=== PATIENT | female | born 1940 | race Caucasian/White ===

== ENCOUNTER → 2016-10-11 | Outpatient (CLI) | payer MEDICARE, OTHER | LOC: MC.RAD 10-04 10:40 | DX: Z12.31 Encounter for screening mammogram for malignant neoplasm of breast (principal) ==

== ENCOUNTER 2018-05-25 10:03 | Outpatient (CLI) | payer MEDICARE, OTHER ==
[2018-05-25] VITALS (8 sets, daily range): BP systolic 126–149; BP diastolic 67–93; PULSE 46–74; TEMP 97.4–97.8
[~2018-05-25] VITALS: Ht 157.6 cm; Wt 76.0 kg
[2018-05-25] MEDS ORDERED: FLONASEALLERGY NS (11:24)
[2018-05-25] MEDS ORDERED: PROTONIX20 MG PO (11:25)
[2018-05-25] MEDS ORDERED: ZESTRIL 10MG10 MG PO (11:25)
[2018-05-25] MEDS ORDERED: ZANTAC 150MG T150 MG PO ×2 (11:26)
[2018-05-25] MEDS ORDERED: CENTRUM SILVER1 CTB PO (11:27)
[2018-05-25] MEDS ORDERED: ZYRTEC 10MG10 MG PO (11:27)
[2018-05-25] MEDS ORDERED: ULTRAM 50MG TAB50 MG PO (11:28)
[2018-05-25] MEDS ORDERED: MOTRIN 200200 MG/TAB PO (11:28)
--- NOTE | 2018-05-25 12:20 | NUR ---
ALL SEDATION MEDICATIONS WILL BE GIVEN DURING PROCEDURE WITH VERBAL ORDER FROM MD MOHAN. SEE MERGE FOR ADMIN TIMES. SEE MERGE FOR RASS MODERATE SEDATION ASSESSMENTS DURING AND AFTER PROCEDURE.
--- NOTE | 2018-05-25 13:45 | NUR ---
Pt returned to EU 11 per bed s/p vertebroplasty. Pt resting well, son at bedside.
--- NOTE | 2018-05-25 15:26 | NUR ---
Pt has ambulated, voided and shannen PO intake s N/V.
--- NOTE | 2018-05-25 15:45 | NUR ---
Pt reports pain with ambulation prior to procedure /10. Pt reports pain with ambulation post vertebroplasty /. PIV removed with catheter intact.
--- NOTE | 2018-05-25 15:55 | NUR ---
Pt discharged per w/c by nurse with son.
== END 2018-05-25 16:01 | disposition home or self-care (01) ==
LOC: COL.CAR 10:03
DX: S32.040A Wedge compression fracture of fourth lumbar vertebra, initial encounter for closed fracture (principal); M19.90 Unspecified osteoarthritis, unspecified site; J45.909 Unspecified asthma, uncomplicated; I11.0 Hypertensive heart disease with heart failure; I50.30 Unspecified diastolic (congestive) heart failure; K21.9 Gastro-esophageal reflux disease without esophagitis; Z90.710 Acquired absence of both cervix and uterus; Z88.3 Allergy status to other anti-infective agents; Z82.5 Family history of asthma and other chronic lower respiratory diseases; Z82.3 Family history of stroke; Z83.79 Family history of other diseases of the digestive system; Z82.49 Family history of ischemic heart disease and other diseases of the circulatory system
CPT/HCPCS: J2250; J3010; J7120

== ENCOUNTER 2018-06-19 10:14 | Outpatient (CLI) | payer MEDICARE, OTHER ==
[2018-06-19] VITALS (10 sets, daily range): BP systolic 110–140; BP diastolic 63–88; PULSE 52–83; TEMP 97.8–97.9
[~2018-06-19] VITALS: Ht 157.8 cm; Wt 72.0 kg
[~2018-06-19 10:14] MED LIST: CENTRUM SILVER1 CTB PO; FLONASEALLERGY NS; MOTRIN 200200 MG/TAB PO; PROTONIX20 MG PO; ULTRAM 50MG TAB50 MG PO; ZANTAC 150MG T150 MG PO; ZESTRIL 10MG10 MG PO; ZYRTEC 10MG10 MG PO
--- NOTE | 2018-06-19 11:37 | NUR ---
ALL MEDICATIONS GIVEN WITH VERBAL ORDER AND READBACK WITH MD. SEE MERGE FOR ALL MEDICATION ADMIN TIMES. SEE MERGE FOR RASS ASSESSMENTS DURING PROCEDURE.
--- NOTE | 2018-06-19 12:30 | NUR ---
Pt returned to EU 12 per bed s/p vert. Pt resting well, daughter at bedside.
--- NOTE | 2018-06-19 13:30 | NUR ---
Pt ambulate to BR with assist of 1.
--- NOTE | 2018-06-19 15:20 | NUR ---
Pt has ambulated c cane and SBA, voided and shannen PO intake s n/v. PIV removed with catheter intact.
--- NOTE | 2018-06-19 15:45 | NUR ---
Pt discharged per w/c by nurse with daughter.
== END 2018-06-19 16:22 | disposition home or self-care (01) ==
LOC: COL.CAR 10:14
DX: S32.030A Wedge compression fracture of third lumbar vertebra, initial encounter for closed fracture (principal); Z90.710 Acquired absence of both cervix and uterus; Z88.3 Allergy status to other anti-infective agents
CPT/HCPCS: J2250; J3010; J7120

== ENCOUNTER 2021-07-11 14:04 | Emergency (ER) | payer MEDICARE ==
[~2021-07-11] VITALS: Ht 154.9 cm; Wt 65.9 kg
[2021-07-11 16:44] VITALS: BP 134/75; PULSE 67; TEMP 97.9
== END 2021-07-11 16:45 | disposition home or self-care (01) ==
LOC: COL.ER 14:04
DX: S00.83XA Contusion of other part of head, initial encounter (principal); S00.33XA Contusion of nose, initial encounter; W01.0XXA Fall on same level from slipping, tripping and stumbling without subsequent striking against object, initial encounter; Y92.007 Garden or yard of unspecified non-institutional (private) residence as the place of occurrence of the external cause

== ENCOUNTER → 2021-08-18 | Outpatient (REF) | LOC: COL.CARD 07:44 | DX: R00.2 Palpitations (principal) ==

== ENCOUNTER → 2022-09-02 | Outpatient (REF) | payer MEDICARE ==
[~2022-09-02] MED LIST changes: +CEPHALEXIN250 M1 PO; +CIPRO 500MG TA500 MG PO; +COLACE 100100 MG/CAP PO; +CRANBERRY125 MG; +DIFLUCAN200 MG PO; +ELIQUIS 2.5 PO; +ELIQUIS 5MG PO; +FOSAMAX 70MG TA70 MG PO; +HONEY BEARS MU1 EACH PO; +JARDIANCE10; +LASIX 20MG TABL20 MG PO; +LIPITOR20 MG PO; +MIRALAX PA17 GM/Dose PO; +NEURONTIN100 MG/CAP PO; +PEPCID 20MG TAB20 MG PO; +REMERON 15M15 MG/TA1 PO; +SENNA-S 50 MG-81 TAB PO; +VITAMIN C500 MG PO
[2022-09-02 12:04] LABS: BILIRUBIN,TOTAL 0.6 mg/dL (0.2-1.2); CALCIUM 9.1 mg/dL (8.4-10.2); CREATININE, serum 0.74 mg/dL (0.57-1.11); THYROID STIMULATING HORMONE 2.504 uIU/mL (0.350-4.940); TOTAL PROTEIN 5.2 gm/dL (6.2-8.1)
[2022-09-02 12:13] LABS: BASO % 0.5 % (0.0-2.0); EOS # 0.1 K/mm3 (0.0-0.7); EOS % 2.1 % (0.0-4.0); GRAN # 3.4 K/mm3 (1.4-6.5); GRAN % 59.7 % (42.2-75.2); HEMOGLOBIN 11.7 g/dl (12.5-16.0); LYMPH # 1.5 K/mm3 (1.2-3.4); LYMPH % 25.7 % (20.0-51.0); MEAN CELL VOLUME 87 fl (80.0-100.0); MEAN CORPUSCULAR HEMOGLOBIN 28 pg (27-31); MEAN CORPUSCULAR HGB CONC 32 g/dl (33.0-37.0); MEAN PLATELET VOLUME 9.8 fl (7.4-10.4); MONO # 0.7 K/mm3 (0.1-0.6); MONO % 11.7 % (1.7-9.3); PLATELET COUNT 224 K/mm3 (130-400); RED BLOOD COUNT 4.21 M/mm3 (4.10-5.30); REDCELL DISTRIBUTION WIDTH-CV 14.6 % (11.5-14.5)
[2022-09-02 12:14] LABS: HEMATOCRIT 36.8 % (37.0-47.0)
[2022-09-02 17:44] LABS: COLLECTION METHOD CLEAN CATCH
[2022-09-02 18:04] LABS: URINE APPEARANCE Hazy (CLEAR/HAZY); URINE COLOR Yellow (YELLOW)
[2022-09-02 18:05] LABS: URINE BLOOD 1+ (NEGATIVE); URINE GLUCOSE Negative (NEGATIVE); URINE KETONE Negative (NEGATIVE); URINE NITRATE Negative (NEGATIVE); URINE PROTEIN(semi-quant) 1+ (NEGATIVE); URINE UROBILINOGEN 0.2 E.U/dL (0.2-1.0)
[2022-09-02 18:06] LABS: SQUAMOUS EPITHELIAL None Seen /hpf (0-10); URINE BACTERIA Rare /hpf (NONE SEEN); URINE WBC >50 /hpf (0-2)
== END ==
LOC: ZCOL.LAB 11:14
PROVIDERS: Family Medicine
DX: E78.5 Hyperlipidemia, unspecified (principal); N39.0 Urinary tract infection, site not specified; E11.40 Type 2 diabetes mellitus with diabetic neuropathy, unspecified; R94.6 Abnormal results of thyroid function studies

== ENCOUNTER → 2022-09-03 | Outpatient (REF) | payer MEDICARE ==
[2022-09-03 14:26] LABS: COLLECTION METHOD CLEAN CATCH
[2022-09-03 14:46] LABS: URINE APPEARANCE Cloudy (CLEAR/HAZY); URINE BLOOD 1+ (NEGATIVE); URINE COLOR Yellow (YELLOW); URINE GLUCOSE Negative (NEGATIVE); URINE KETONE Negative (NEGATIVE); URINE NITRATE Negative (NEGATIVE); URINE PROTEIN(semi-quant) 1+ (NEGATIVE); URINE UROBILINOGEN 0.2 E.U/dL (0.2-1.0)
[2022-09-03 14:48] LABS: SQUAMOUS EPITHELIAL None Seen /hpf (0-10); URINE BACTERIA None Seen /hpf (NONE SEEN); URINE RBC 20-50 /hpf (0-2); URINE WBC >50 /hpf (0-2)
== END ==
LOC: ZCOL.LAB 13:26
PROVIDERS: Family Medicine
DX: N39.0 Urinary tract infection, site not specified (principal)

== ENCOUNTER → 2022-12-14 | Outpatient (CLI) | payer MEDICARE ==
[2022-12-14 10:25] LABS: COLLECTION METHOD CLEAN CATCH
[2022-12-14 10:39] LABS: MUCOUS Present (NOT PRESENT); SQUAMOUS EPITHELIAL 0-2 /hpf (0-10); URINE BACTERIA None Seen /hpf (NONE SEEN); URINE RBC 20-50 /hpf (0-2); URINE WBC >50 /hpf (0-2)
[2022-12-14 10:40] LABS: URINE APPEARANCE Turbid (CLEAR/HAZY); URINE BLOOD 2+ (NEGATIVE); URINE COLOR Yellow (YELLOW); URINE GLUCOSE Negative (NEGATIVE); URINE KETONE Negative (NEGATIVE); URINE NITRATE Positive (NEGATIVE); URINE PROTEIN(semi-quant) 1+ (NEGATIVE); URINE UROBILINOGEN 0.2 E.U/dL (0.2-1.0)
== END ==
LOC: ZCOL.LAB 10:23
PROVIDERS: Family Medicine
DX: N39.0 Urinary tract infection, site not specified (principal)

== ENCOUNTER → 2023-06-19 | Outpatient (CLI) | payer MEDICARE | LOC: ZCOL.LAB 13:31 | DX: R94.6 Abnormal results of thyroid function studies (principal) ==